=== PATIENT | female | born 1945 | race Caucasian/White ===

== ENCOUNTER → 2024-06-22 10:06 | Outpatient (REF) | payer MEDICARE, SELFPAY | LOC: RCS 10:06 | PROVIDERS: ATTENDING PHYSICIAN Internal Medicine Cardiovascular Disease; FAMILY PHYSICIAN Family Medicine | DX: R06.09 Other forms of dyspnea (principal); I65.23 Occlusion and stenosis of bilateral carotid arteries | CPT/HCPCS: 93306; 93880 ==

== ENCOUNTER → 2024-07-04 13:18 | Outpatient (REF) | payer MEDICARE, SELFPAY | LOC: RAD 13:18 | PROVIDERS: ATTENDING PHYSICIAN Oral & Maxillofacial Surgery; FAMILY PHYSICIAN Family Medicine; REFERRING PHYSICIAN Psychiatry & Neurology Neurology | DX: Z92.3 Personal history of irradiation (principal); C06.0 Malignant neoplasm of cheek mucosa; K12.30 Oral mucositis (ulcerative), unspecified | CPT/HCPCS: 70491; Q9967 ==

== ENCOUNTER → 2024-10-19 13:07 | Outpatient (REF) | payer MEDICARE, SELFPAY | LOC: MRI 3T 13:07 | PROVIDERS: ATTENDING PHYSICIAN Oral & Maxillofacial Surgery; FAMILY PHYSICIAN Family Medicine; REFERRING PHYSICIAN Otolaryngology | DX: K12.1 Other forms of stomatitis (principal); C06.0 Malignant neoplasm of cheek mucosa | CPT/HCPCS: 70543; A9575 ==

== ENCOUNTER → 2025-04-05 13:21 | Outpatient (REF) | payer MEDICARE, SELFPAY | LOC: RCS 13:21 | PROVIDERS: ATTENDING PHYSICIAN Internal Medicine Cardiovascular Disease; FAMILY PHYSICIAN Family Medicine | DX: R06.09 Other forms of dyspnea (principal); R94.31 Abnormal electrocardiogram [ECG] [EKG] | CPT/HCPCS: 93306 ==